=== PATIENT | female | born 1975 | race African-American/Black ===

== ENCOUNTER 2020-01-25 07:00 | Emergency (ER) | payer OTHER ==
[~2020-01-25] VITALS: Ht 160 cm; Wt 67.1 kg
[2020-01-25 07:53] LABS: ANION GAP 9 mmol/L (7-16); BUN 18 mg/dL (7-18); CALCIUM 9.9 mg/dL (8.5-10.1); CHLORIDE 99 mmol/L (98-107); CO2 28 mmol/L (21-32); GLUCOSE 125 mg/dL (74-106); POTASSIUM 3.2 mmol/L (3.5-5.1); SODIUM 136 mmol/L (136-145)
[2020-01-25 07:56] LABS: ABSOLUTE NEUTROPHILS 7.7 thou/uL (1.4-8.2); BASOPHILS 0.3 % (0.0-2.0); EOSINOPHILS 1.4 % (0.0-3.0); HEMATOCRIT 47.8 % (37.0-47.0); HEMOGLOBIN 16.2 gm/dL (12.0-15.0); MCH 33.4 pg (26.0-34.0); MCHC 33.9 g/dL (28.0-37.0); MCV 98.4 fL (80.0-100.0); MONOCYTES 5.7 % (1.0-8.0); PLATELET COUNT 288 thou/uL (150-400); POLYS 82.6 % (36.0-66.0); RBC 4.86 mil/uL (4.20-5.00); RDW 13.9 % (10.5-14.5); WBC 9.3 thou/uL (4.0-11.0)
[2020-01-25 08:03] LABS: ALBUMIN 4.1 g/dL (3.4-5.0); LIPASE 71 U/L (73-393); SGOT 14 U/L (15-37); SGPT 11 U/L (30-65); TOTAL BILIRUBIN 0.6 mg/dL (<0.1-1.0); TOTAL PROTEIN 9.2 g/dL (6.4-8.2); TROPONIN-I <0.06 ng/mL (<0.06)
[2020-01-25 08:13] LABS: URINE BILIRUBIN NEGATIVE (Negative); URINE BLOOD NEGATIVE (Negative); URINE CLARITY CLEAR; URINE COLOR YELLOW; URINE GLUCOSE-RANDOM* NEGATIVE (Negative); URINE KETONES 1+ (Negative); URINE LEUKOCYTES-REFLEX TRACE (Negative); URINE NITRITE-REFLEX NEGATIVE (Negative); URINE PROTEIN (DIPSTICK) TRACE (Negative)
[2020-01-25 08:24] LABS: AMP/METHAMP Negative (Negative); BARBITURATES Negative (Negative); BENZODIAZEPINES Negative (Negative); COCAINE POSITIVE (Negative); METHADONE Negative (Negative); OPIATES Negative (Negative); PCP Negative (Negative)
[2020-01-25] MEDS ORDERED: ONDANSETRON ODT8 MG PO (09:13)
[2020-01-25] MEDS ORDERED: TRAMADOL 50 MG50 MG PO (09:13)
[2020-01-25] MEDS ORDERED: PRILOSEC OTC20 MG PO (09:13)
[2020-01-25 09:15] VITALS: BP 168/103
--- NOTE | 2020-01-25 16:22 | EKG ---
[facility] [place] [address] ELECTROCARDIOGRAM REPORT Name: ADARSH WADE Room #: DEP [facility]#: [id number] Admission: 01/25/20 Attend Phys: Discharge: 01/25/20 Date of : 75 Report #: [id number] THIS REPORT FOR: cc: [facility] - Clinic physician unknown [facility] - Clinic physician unknown Michel Boateng MD ~ THIS REPORT FOR: //name// [facility] ED Test Date: 2020-01-25 Test Time: 07:33:21 Pat Name: ADARSH WADE Department: Room: Gender: F [employer]: ANUJ : 1975 Requested By: Lenin Rodriguez Order Number: [id number] MD: Michel Boateng Measurements Intervals Mullen Rate: 69 P: 48 MN: 114 QRS: 19 QRSD: 80 T: 22 QT: 452 QTc: 485 Interpretive Statements Sinus rhythm Borderline short MN interval Left atrial enlargement No previous ECG available for comparison Electronically Signed On 01-25-2020 16:20:50 CDT by Michel Boateng [email or web address] <ELECTRONICALLY SIGNED> By: Michel Boateng MD 01/25/20 1620 0733 0733 Michel Boateng MD /DON
== END 2020-01-25 09:18 | disposition home or self-care (01) ==
LOC: ER 07:00
PROVIDERS: Emergency Medicine
DX: R11.2 Nausea with vomiting, unspecified (principal); R10.9 Unspecified abdominal pain; E87.6 Hypokalemia; F14.10 Cocaine abuse, uncomplicated; I10 Essential (primary) hypertension; R06.02 Shortness of breath